=== PATIENT | male | born 1965 | race Caucasian/White ===

== ENCOUNTER 2017-02-27 17:01 | Emergency (ER) | payer OTHER ==
[~2017-02-27] VITALS: Ht 198.1 cm; Wt 147.0 kg
[~2017-02-27 17:01] MED LIST: AMLODIPINE BES2.5 MG PO; HYDROCHLOROTH12.5 M3 PO; LISINOPRIL2.5 MG PO
[2017-02-27] MEDS ORDERED: BENICAR40 MG PO (18:01)
[2017-02-27] MEDS ORDERED: CATAPRES0.2 MG PO (18:01)
[2017-02-27] MEDS ORDERED: HYDROCHLOROTHIA25 MG PO (18:02)
[2017-02-27] MEDS ORDERED: LOPRESSOR50 MG PO (18:02)
[2017-02-27] MEDS ORDERED: ZOLOFT100 MG PO (18:03)
[2017-02-27] MEDS ORDERED: NORVASC5 MG PO (18:03)
[2017-02-27] MEDS ORDERED: LITE COAT ASPI325 M1 PO (18:03)
[2017-02-27] MEDS ORDERED: PRILOSEC20 MG PO (18:03)
[2017-02-27] MEDS ORDERED: LOPID600 MG PO (18:04)
[2017-02-27] MEDS ORDERED: VITAMIN D35000 UNI2 PO (18:05)
[2017-02-27 21:21] VITALS: BP 159/97
== END 2017-02-27 21:22 | disposition home or self-care (01) ==
LOC: EME 17:01
DX: G89.18 Other acute postprocedural pain (principal); M79.661 Pain in right lower leg; Z98.890 Other specified postprocedural states; S82.401D Unspecified fracture of shaft of right fibula, subsequent encounter for closed fracture with routine healing; S82.201D Unspecified fracture of shaft of right tibia, subsequent encounter for closed fracture with routine healing; I10 Essential (primary) hypertension; F17.200 Nicotine dependence, unspecified, uncomplicated
CPT/HCPCS: 73590; 93971; 99281; 99284